=== PATIENT | female | born 1985 | race Caucasian/White ===

== ENCOUNTER 2021-03-27 21:15 | Emergency (ER) | payer OTHER ==
[2021-03-27 21:25] VITALS: BP 130/92; PULSE 104; TEMP 98.2; BMI 29.7
[2021-03-27] MEDS ORDERED: KETOROLAC TROMETHAMINE 30 MG/1 ML VIAL IM ONE (22:27)
[2021-03-27] MEDS ORDERED: METHOCARBAMOL 500 MG TABLET PO ONE (22:27)
== END 2021-03-27 23:50 | disposition home or self-care (01) ==
LOC: JERFT 21:15
PROC: 3E0233Z Introduction of Anti-inflammatory into Muscle, Percutaneous Approach (ICD-10-PCS; principal; 2021-03-27)
DX: M54.42 Lumbago with sciatica, left side (principal); V89.2XXA Person injured in unspecified motor-vehicle accident, traffic, initial encounter
CPT/HCPCS: 72100-TC-FY; 99284-25

== ENCOUNTER 2021-09-19 11:26 | Emergency (ER) | payer SELFPAY ==
[2021-09-19 11:38] VITALS: BMI 28.5
[2021-09-19] MEDS ORDERED: BEBTELOVIMAB (EUA) 175 MG/2 ML VIAL IVPUSH ONE (14:12)
[2021-09-19 14:45] VITALS: TEMP 98.1
[2021-09-19 16:03] VITALS: BP 116/82; PULSE 82
== END 2021-09-19 16:10 | disposition home or self-care (01) ==
LOC: JERFT 11:26 → JER 11:26
PROC: 3E033NZ Introduction of Analgesics, Hypnotics, Sedatives into Peripheral Vein, Percutaneous Approach (ICD-10-PCS; principal; 2021-09-19)
DX: U07.1 COVID-19 (principal)
CPT/HCPCS: 0241U-QW; 71046-TC-FY; 87070; 93970-TC; 99284-25; Q0222

== ENCOUNTER 2022-08-13 21:05 | Emergency (ER) | payer OTHER ==
[2022-08-13 21:16] VITALS: BP 121/82; PULSE 82; RESP 17; TEMP 98.8; BMI 29.7
[2022-08-13 22:01] LABS: BASO % 0.7 % (0-2.0); EOS % 1.5 % (0-4.5); HEMATOCRIT 39.1 % (32.4-45.2); HEMOGLOBIN 13.6 GM/dL (10.7-15.3); LYMPH % 29.9 % (8-40); MCH 30.7 pg (25.7-33.7); MCHC 34.7 g/dl (32.0-36.0); MEAN CELL VOLUME 88.6 fl (80-96); MEAN PLT VOLUME 7.3 fl (7.5-11.1); MONO % 7.9 % (3.8-10.2); PLATELET COUNT 320 10^3/uL (134-434); RBC 4.42 M/mm3 (3.60-5.2); RDW 13.5 % (11.6-15.6); WHITE BLOOD COUNT 8.2 K/mm3 (4.0-10.0)
[2022-08-13 22:29] LABS: CALCIUM 8.4 mg/dL (8.5-10.1)
[2022-08-13 22:30] LABS: ALBUMIN 3.9 g/dl (3.4-5.0); BLOOD UREA NITROGEN 10.7 mg/dL (7-18)
[2022-08-13 22:33] LABS: CREATININE 0.7 mg/dL (0.55-1.3)
[2022-08-13 22:34] LABS: BILIRUBIN,TOTAL 0.3 mg/dL (0.2-1)
[2022-08-13 22:35] LABS: TOT PROT 7.1 g/dl (6.4-8.2)
== END 2022-08-14 00:10 | disposition home or self-care (01) ==
LOC: JER 21:05
DX: O26.891 Other specified pregnancy related conditions, first trimester (principal); R10.2 Pelvic and perineal pain; Z3A.01 Less than 8 weeks gestation of pregnancy
CPT/HCPCS: 36415; 76817-TC; 80053; 84702; 85025; 86850; 86900; 86901; 99284-25

== ENCOUNTER 2022-08-21 09:40 | Emergency (ER) | payer OTHER ==
[2022-08-21 09:46] VITALS: BP 131/79; PULSE 84; RESP 18; TEMP 98.4; BMI 29.7
[2022-08-21 12:01] LABS: BASO % 0.7 % (0-2.0); EOS % 1.4 % (0-4.5); HEMATOCRIT 39.1 % (32.4-45.2); HEMOGLOBIN 13.5 GM/dL (10.7-15.3); LYMPH % 35.3 % (8-40); MCH 30.7 pg (25.7-33.7); MCHC 34.4 g/dl (32.0-36.0); MEAN CELL VOLUME 89.2 fl (80-96); MEAN PLT VOLUME 7.4 fl (7.5-11.1); MONO % 5.9 % (3.8-10.2); NEUT % 56.7 % (42.8-82.8); PLATELET COUNT 267 10^3/uL (134-434); RBC 4.38 M/mm3 (3.60-5.2); RDW 13.2 % (11.6-15.6)
[2022-08-21 12:05] LABS: EPI CELLS >36 /uL (0-25.1); HYALINE CASTS 0 /uL (0-3.1); PH,URINE 5.5 (5.0-8.0); URINE APPEARANCE CLOUDY; URINE BACTERIA 1635 /uL (0-1359); URINE BILIRUBIN NEGATIVE (NEGATIVE); URINE COLOR ORANGE; URINE GLUCOSE (UA) NEGATIVE (NEGATIVE); URINE KETONE NEGATIVE (NEGATIVE); URINE LEUK ESTERASE 1+ (NEGATIVE); URINE NITRITE NEGATIVE (NEGATIVE); URINE PROTEIN NEGATIVE (NEGATIVE); URINE UROBILINOGEN 0.2 mg/dL (0.2-1.0); URINE WBC 95 /uL (0-25.8)
[2022-08-21 12:17] LABS: HCG,QUALITATIVE URINE Positive
[2022-08-21 12:21] LABS: CALCIUM 8.7 mg/dL (8.5-10.1)
[2022-08-21 12:22] LABS: ALBUMIN 3.8 g/dl (3.4-5.0); BLOOD UREA NITROGEN 9.9 mg/dL (7-18)
[2022-08-21 12:25] LABS: CREATININE 0.6 mg/dL (0.55-1.3)
[2022-08-21 12:26] LABS: BILIRUBIN,TOTAL 0.7 mg/dL (0.2-1)
[2022-08-21 12:27] LABS: TOT PROT 6.8 g/dl (6.4-8.2)
[2022-08-21 14:09] LABS: URINE RBC 13.1 /uL (0-23.9)
== END 2022-08-21 15:57 | disposition home or self-care (01) ==
LOC: JER 09:40
DX: O20.9 Hemorrhage in early pregnancy, unspecified (principal); O99.611 Diseases of the digestive system complicating pregnancy, first trimester; R10.30 Lower abdominal pain, unspecified; O23.91 Unspecified genitourinary tract infection in pregnancy, first trimester; R30.0 Dysuria; Z3A.01 Less than 8 weeks gestation of pregnancy
CPT/HCPCS: 36415; 76817-TC; 80053; 81003; 84702; 84703; 85025; 86850; 86900; 86901; 87070; 87077; 87086; 87205; 87491; 87591; 99284-25

== ENCOUNTER 2022-08-22 16:48 | Emergency (ER) | payer OTHER ==
[2022-08-22 17:18] VITALS: BP 113/63; PULSE 78; RESP 17; TEMP 98; BMI 29.7
[2022-08-22] MEDS ORDERED: ACETAMINOPHEN 500 MG TABLET (FP) PO ONE (17:53)
[2022-08-22] MEDS ORDERED: ACETAMINOPHEN 325 MG TABLET (FP) ONE (17:58)
[2022-08-22 19:10] LABS: BLOOD UREA NITROGEN 10.4 mg/dL (7-18)
[2022-08-22 19:13] LABS: CREATININE 0.7 mg/dL (0.55-1.3)
[2022-08-22 19:15] LABS: BILIRUBIN,TOTAL 0.4 mg/dL (0.2-1); TOT PROT 7.2 g/dl (6.4-8.2)
== END 2022-08-22 20:46 | disposition home or self-care (01) ==
LOC: JER 16:48
DX: O20.9 Hemorrhage in early pregnancy, unspecified (principal); Z3A.01 Less than 8 weeks gestation of pregnancy
CPT/HCPCS: 80053; 84702; 99282-25

== ENCOUNTER 2023-01-02 18:53 | Emergency (ER) | payer BC, OTHER ==
[2023-01-02 19:32] VITALS: BP 132/86; PULSE 99; RESP 20; TEMP 99.5; BMI 30.5
[2023-01-02] MEDS ORDERED: ACETAMINOPHEN 500 MG TABLET (FP) PO ONE (19:56)
[2023-01-02] MEDS ORDERED: ACETAMINOPHEN 500 MG TABLET (FP) ONE (20:04)
== END 2023-01-02 21:03 | disposition home or self-care (01) ==
LOC: JERFT 18:53
DX: S69.91XA Unspecified injury of right wrist, hand and finger(s), initial encounter (principal); W22.01XA Walked into wall, initial encounter; X50.1XXA Overexertion from prolonged static or awkward postures, initial encounter
CPT/HCPCS: 73110-TC-RT-FY; 84703; 99284-25